=== PATIENT | male | born 1990 | race Caucasian/White ===

== ENCOUNTER 2023-10-25 13:47 | Emergency (ER) | payer BC, SELFPAY ==
[~2023-10-25] VITALS: Ht 180.3 cm; Wt 79.5 kg
[2023-10-25] MEDS ORDERED: NS 1,000 ML IV ONE (14:00)
[2023-10-25 14:22] LABS: BASO % 0.2 % (0.0-1.0); EOS # 0.1 10^3/uL (0.0-0.5); EOS % 1.7 % (0.0-3.0); HEMATOCRIT 45.8 % (42.0-52.0); HEMOGLOBIN 15.3 g/dl (13.5-17.5); LYMPH # 1.2 10^3/uL (1.5-5.0); LYMPH % 26.1 % (24.0-44.0); MEAN CORPUSCULAR HGB CONC 33.4 g/dl (32.0-36.5); MEAN CORPUSCULAR VOLUME 86.9 fl (80.0-96.0); MONO # 1.2 10^3/uL (0.0-0.8); MONO % 26.6 % (2.0-8.0); NEUTROPHILS # 2.1 10^3/uL (1.5-8.5); NEUTROPHILS % 45.2 % (36.0-66.0); PLATELET COUNT, AUTOMATED 166 10^3/uL (150-450); RED BLOOD COUNT 5.27 10^6/uL (4.30-6.10); WHITE BLOOD COUNT 4.6 10^3/uL (4.0-10.0)
[2023-10-25 14:41] LABS: CK-MB VALUE MASS 6.6 NG/ML (<3.6)
[2023-10-25 14:43] LABS: BLOOD UREA NITROGEN 32 MG/DL (9-23); CARBON DIOXIDE LEVEL 29 MMOL/L (20-31); CHLORIDE LEVEL 103 MMOL/L (98-107); CPK CREATINE PHOSPHOKINASE 179 U/L (46-171); CREATININE FOR GFR 0.97 MG/DL (0.70-1.30); GLOMERULAR FILTRATION RATE > 60.0 (>60); GLUCOSE, FASTING 101 MG/DL (60-100); MAGNESIUM LEVEL 1.9 MG/DL (1.8-2.4); MB/CK RELATIVE INDEX 3.68 (< OR =4); SODIUM LEVEL 138 MMOL/L (136-145)
[2023-10-25 14:45] LABS: FREE T4 0.73 NG/DL (0.89-1.76); THYROID STIMULATING HORMONE 5.476 uIU/ML (0.55-4.78)
[2023-10-25 14:51] LABS: AMPHETAMINES LEVEL URINE NEGATIVE (NEGATIVE); BARBITURATES URINE NEGATIVE (NEGATIVE); BENZODIAZEPINES URINE NEGATIVE (NEGATIVE); COCAINE METABOLITE URINE NEGATIVE (NEGATIVE); METHADONE URINE NEGATIVE (NEGATIVE); OPIATES URINE NEGATIVE (NEGATIVE); PHENCYCLIDINE URINE NEGATIVE (NEGATIVE)
[2023-10-25 14:52] LABS: CANNABINOIDS URINE POSITIVE (NEGATIVE)
[2023-10-25 14:57] LABS: RSV AMPLIFICATION NEGATIVE (NEGATIVE)
[2023-10-25 15:57] LABS: CK-MB VALUE MASS 5.3 NG/ML (<3.6)
[2023-10-25 15:58] LABS: MB/CK RELATIVE INDEX 3.44 (< OR =4)
[2023-10-25 16:00] VITALS: BP 114/62; O2SAT 97
[2023-10-25 16:18] VITALS: TEMP 98.9
== END 2023-10-25 16:19 | disposition home or self-care (01) ==
LOC: EDBD 13:47 → M ED 13:47
DX: U07.1 COVID-19 (principal); R55 Syncope and collapse

== ENCOUNTER 2024-08-05 17:16 | Emergency (ER) | payer OTHER, SELFPAY ==
[~2024-08-05] VITALS: Ht 182.9 cm; Wt 79.8 kg
[2024-08-05 17:21] VITALS: BP 140/87; TEMP 97.3; O2SAT 100
[2024-08-05] MEDS: FLUORESCEIN OPHTH 1MG STRIP OS ONE (18:15)
[2024-08-05] MEDS: PROPARACAINE 0.5% OPHTH SOL 15ML OS ONE (18:15)
[2024-08-05] MEDS: ERYTHROMYCIN OPHTH OINT OS ONE (18:31)
[2024-08-05] MEDS ORDERED: ERYT5OIN25 OS (18:32)
[2024-08-05] MEDS: BOOSTRIX VACCINE (TETANUS/DIPHTH/ACEL. PERTUSSIS) 0.5ML SYR IM.IMMUN ONE (18:41)
== END 2024-08-05 18:51 | disposition home or self-care (01) ==
LOC: M ED 17:16
DX: S05.02XA Injury of conjunctiva and corneal abrasion without foreign body, left eye, initial encounter (principal); Z23 Encounter for immunization; Z79.2 Long term (current) use of antibiotics; Y93.89 Activity, other specified; Y99.9 Unspecified external cause status; Y92.9 Unspecified place or not applicable